=== PATIENT | female | born 1990 | race African-American/Black ===

== ENCOUNTER 2019-11-13 16:30 | Emergency (ER) | payer OTHER ==
[2019-11-13] MEDS ORDERED: ONDANSETRON *ODT* 4 MG TABLET SL ONE (16:43)
[2019-11-13 16:44] VITALS: BP 127/65; PULSE 84; TEMP 97.8; BMI 34.5
--- NOTE | 2019-11-13 16:44 | PDOC ---
Rapid Medical Evaluation Time Seen by Provider: 11/13/19 16:43 Medical Evaluation: Allergies Allergy/AdvReac Type Severity Reaction Status Date / Time Penicillins Allergy Verified 11/13/19 16:40 11/13/19 16:44 Pt c/o: n/v x 2 days now with gen fatigue, no other complaints Pt on brief exam: vss Pt ordered for: urine and zofran po Pt to proceed to the ED Discharge Disposition - Diagnosis Abdominal pain Nausea & vomiting Qualifiers: Vomiting type: unspecified Vomiting Intractability: non-intractable Qualified Code(s): R11.2 - Nausea with vomiting, unspecified - Discharge Dispostion Disposition: AGAINST MEDICAL ADVICE Condition at time of disposition: Guarded - Referrals - Patient Instructions Printed Discharge Instructions: DI for Abdominal Pain-Adult Additional Instructions: You are signing out AGAINST MEDICAL ADVICE. You have refused medication, bloodwork, and further imaging to find out the cause of your abdominal pain. You understand that you have not had a full evaluation in the ER and you are at risk for worsening of your symptoms, severe illness, permanent disability, or even . Please return to the ER should your symptoms persist. - Post Discharge Activity Work/School Note: Back to Work
[2019-11-13] MEDS ORDERED: ONDANSETRON *ODT* 4 MG TABLET ONE (18:15)
[2019-11-13] MEDS ORDERED: FAMOTIDINE 20 MG/50 ML IVPB 20 MG/50 ML MG IVPB ONE ×2 (18:25→19:24)
[2019-11-13] MEDS ORDERED: SODIUM CHLORIDE 1,000 ML IV STA (18:25)
--- NOTE | 2019-11-13 18:39 | PDOC ---
History of Present Illness - General Chief Complaint: Nausea/Vomiting Stated Complaint: VOMITTING/LOSS OF APPETITE Time Seen by Provider: 11/13/19 16:43 History Source: Patient Exam Limitations: Clinical Condition - History of Present Illness Initial Comments: 11/13/19 18:34 Patient with no significant past medical history present with complaint of 2- day history of abdominal pain, nausea, vomiting, body aches, weakness and headache. Patient reported abdominal pain is intermittent. Denies diarrhea, constipation. Denies urinary frequency, burning with urination or dysuria. Patient also reporting pain radiating to mid back. Patient did not take anything for symptoms. Is this a multiple visit Asthma Patient?: No Timing/Duration: other (2 days) Past History - Past Medical History Allergies/Adverse Reactions: Allergies Allergy/AdvReac Type Severity Reaction Status Date / Time Penicillins Allergy Verified 11/13/19 16:40 Home Medications: Ambulatory Orders NK [No Known Home Medication] 09/03/16 COPD: No Other medical history: PNA hospitalized 2017 - Psycho Social/Smoking Cessation Hx Smoking History: Never smoked Have you smoked in the past 12 months: Yes Number of Cigarettes Smoked Daily: 2 Hx Alcohol Use: No Drug/Substance Use Hx: No Substance Use Type: None Review of Systems - Review of Systems Able to Perform ROS?: Yes Is the patient limited Bengali proficient: No Constitutional: Yes: Malaise, Weakness. No: Chills, Fever HEENTM: Yes: Symptoms Reported, See HPI, Nose Congestion. No: Eye Pain, Blurred Vision, Tearing, Recent change in vision, Double Vision, Cataracts, Ear Pain, Ocular Prothesis, Ear Discharge, Nose Pain, Tinnitus, Nose Bleeding, Hearing Loss, Throat Pain, Throat Swelling, Mouth Pain, Dental Problems, Difficulty Swallowing, Mouth Swelling, Other Respiratory: No: Symptoms reported, See HPI, Cough, Orthopnea, Shortness of Breath, SOB with Exertion, SOB at Rest, Stridor, Wheezing, Productive cough, Hemoptysis, Other Cardiac (ROS): No: Symptoms Reported, See HPI, Chest Pain, Edema, Irregular Heart Rate, Lightheadedness, Palpitations, Syncope, Chest Tightness, Other ABD/GI: Yes: Symptoms Reported, See HPI, Nausea, Poor Appetite, Vomiting, Abdominal cramping. No: Constipated, Diarrhea, Difficulty Swallowing : No: Symptoms Reported, Burning, Dysuria, Frequency, Urgency Musculoskeletal: Yes: Symptoms Reported, See HPI, Back Pain Integumentary: No: Symptoms Reported All Other Systems: Reviewed and Negative *Physical Exam - Vital Signs Last Vital Signs Temp Pulse Resp BP Pulse Ox 97.8 F 84 18 127/65 99 11/13/19 16:41 11/13/19 16:41 11/13/19 16:41 11/13/19 16:41 11/13/19 16:41 - Physical Exam 11/13/19 18:38 GENERAL: Well developed, well nourished. Awake and alert in mild acute distress. HEENT: Normocephalic, atraumatic. PERRLA, EOMI. No conjunctival pallor. Sclera are non-icteric. Moist mucous membranes. Oropharynx is clear. NECK: Supple. Full ROM. CARDIOVASCULAR: Regular rate and rhythm. No murmurs, rubs, or gallops. Distal pulses are 2+ and symmetric. PULMONARY: No evidence of respiratory distress. Lungs clear to auscultation bilaterally. No wheezing, rales or rhonchi. ABDOMINAL: Soft. Moderate tenderness right upper quadrant. Non-distended. No rebound or guarding. No organomegaly. Normoactive bowel sounds. MUSCULOSKELETAL Normal range of motion at all joints. SKIN: Warm and dry. Normal capillary refill. No rashes. No jaundice. NEUROLOGICAL: Alert, awake, appropriate. Gait is normal without ataxia. PSYCHIATRIC: Cooperative. Good eye contact. Appropriate mood General Appearance: Yes: Nourished, Appropriately Dressed, Mild Distress ED Treatment Course - RADIOLOGY Radiology Studies Ordered: Category Date Time Status ABDOMEN US -LIMITED [US] Stat Ultrasound 11/13/19 18:22 Ordered - Medications Given in the ED: ED Medications Discontinued Medications Generic Name Dose Route Start Last Admin Trade Name Freq PRN Reason Stop Dose Admin Ondansetron HCl 4 mg 11/13/19 16:43 11/13/19 18:15 Zofran Odt - SL 11/13/19 16:44 4 mg ONCE ONE Administration Medical Decision Making - Medical Decision Making 11/13/19 18:35 Patient with no significant past medical history present with complaint of 2- day history of abdominal pain, nausea, vomiting, body aches, weakness and headache. Patient reported abdominal pain is intermittent. Denies diarrhea, constipation. Denies urinary frequency, burning with urination or dysuria. Patient also reporting pain radiating to mid back. Patient did not take anything for symptoms. Exam significant for moderate tenderness right upper quadrant without guarding or rebound. Lungs clear to auscultation bilateral. Mild subjective tenderness over bilateral mid back. No CVA tenderness. No pharyngeal erythema. Sepsis likely cholecystitis versus gastroenteritis from viral syndrome. UA, urine culture and urine test ordered. Zofran 4 mg sublingual ordered for nausea or vomiting. CBC, CMP and lipase lab ordered. Abdominal ultrasound ordered to rule out cholecystitis. Patient transferred to main ED for follow- up care as patient will need more work-up. Patient signed out to NANDO Ramos for follow-up care Discharge - Discharge Information Problems reviewed: Yes Clinical Impression/Diagnosis: Nausea & vomiting Qualifiers: Vomiting type: unspecified Vomiting Intractability: non-intractable Qualified Code(s): R11.2 - Nausea with vomiting, unspecified Abdominal pain Qualifiers: Abdominal location: right upper quadrant Qualified Code(s): R10.11 - Right upper quadrant pain Condition: Stable - Follow up/Referral - Patient Discharge Instructions - Post Discharge Activity
--- NOTE | 2019-11-13 19:32 | PDOC ---
*Physical Exam - Vital Signs Last Vital Signs Temp Pulse Resp BP Pulse Ox 97.8 F 84 18 127/65 99 11/13/19 16:41 11/13/19 16:41 11/13/19 16:41 11/13/19 16:41 11/13/19 16:41 - Physical Exam 11/13/19 19:31 Sign-out received from fast track provider Oracio. Pt interviewed and examined. Ancillary studies reviewed. Awaiting labs, US. 11/13/19 20:12 Patient refused IV, bloodwork. Advised patient workup is required for further evaluation of the cause of her abdominal pain, patient adamantly refused IV/ labs from multiple RNs. Awaiting US. 11/13/19 21:00 Patient requesting to leave prior to US results. Advised patient to stay for results. US negative. Patient states dhe wants to sign out AMA and that "every winter I get sick like this." Repeatedly discussed with patient that furhter workup is required to investigate cause of sudden onset abdominal pain, patient insists on leaving AMA and has capacity to make this decision. ED Treatment Course - Medications Given in the ED: ED Medications Discontinued Medications Generic Name Dose Route Start Last Admin Trade Name Freq PRN Reason Stop Dose Admin Ondansetron HCl 4 mg 11/13/19 16:43 11/13/19 18:15 Zofran Odt - SL 11/13/19 16:44 4 mg ONCE ONE Administration Discharge - Discharge Information Problems reviewed: Yes Clinical Impression/Diagnosis: Nausea & vomiting Qualifiers: Vomiting type: unspecified Vomiting Intractability: non-intractable Qualified Code(s): R11.2 - Nausea with vomiting, unspecified Abdominal pain Qualifiers: Abdominal location: right upper quadrant Qualified Code(s): R10.11 - Right upper quadrant pain Condition: Guarded Disposition: AGAINST MEDICAL ADVICE - Admission No - Follow up/Referral - Patient Discharge Instructions Patient Printed Discharge Instructions: DI for Abdominal Pain-Adult Additional Instructions: You are signing out AGAINST MEDICAL ADVICE. You have refused medication, bloodwork, and further imaging to find out the cause of your abdominal pain. You understand that you have not had a full evaluation in the ER and you are at risk for worsening of your symptoms, severe illness, permanent disability, or even . Please return to the ER should your symptoms persist. - Post Discharge Activity Work/Back to School Note: Back to Work
== END 2019-11-13 21:56 | disposition left against medical advice (07) ==
LOC: JER 16:30
DX: R10.31 Right lower quadrant pain (principal); R11.2 Nausea with vomiting, unspecified; Z88.0 Allergy status to penicillin
CPT/HCPCS: 76705-TC; 87804; 99282-25; Q0162

== ENCOUNTER 2020-06-04 23:01 | Emergency (ER) | payer SELFPAY ==
[~2020-06-04 23:01] MED LIST: LIDOCAINE PATCH REMOVAL MC SCH
[2020-06-04 23:17] VITALS: BP 102/52; TEMP 98; BMI 42.0
--- NOTE | 2020-06-04 23:53 | PDOC ---
History of Present Illness - General Chief Complaint: Back Pain Stated Complaint: BACK PAIN Time Seen by Provider: 06/04/20 23:51 - History of Present Illness Initial Comments: HPI: 30yo F with no reported PMH presenitng with back pain. Patient reports the pain started earlier today. Denies any recent trauma or new exertional activities. Has never had pain like this before. Did not take anything for her pain at home. Reports 10/10 pain in the region of her right flank that is described as "hot." Denies saddle anesthesia, pain shooting down her legs, or urinary/fecal incontinence. LMP was about three months ago as patient reports abnormal cycles. Has had some recent weight gain. Reports chills. No fever or night sweats. Denies urinary symptoms. ROS: Constitutional: no fever, +chills HEENT: no throat pain, no dysphagia Cardiovascular: no chest pain, no palpitations Respiratory: no cough, no shortness of breath Gastrointestinal: no abdominal pain, no nausea Genitourinary: no dysuria, no hematuria Musculoskeletal: no arthralgia +back pain Skin: no rash, no itching Neurologic: no headache, no weakness Psych: no agitation, no anxiety PE: General: Awake, alert, and fully oriented, in no acute distress, obese Head: No signs of trauma Eyes: EOMI, sclera anicteric ENT: Moist mucus membranes Neck: Normal ROM, supple Lungs: Lungs clear, Normal breath sounds Cardio: Regular rhythm, S1 and S2 present Abdomen: Soft, nontender. No guarding, no rebound, no masses Extremities: Normal range of motion, Distal pulses present Skin: Warm, Dry, normal turgor Neurologic: Cranial nerves II through XII grossly intact. Normal speech Back: Tender to palpation in lumbar area, right of midline, no step-offs/deformities/fluctuance; no overlying wound or lesion ED Course/MDM: DDX including but not limited to musculoskeletal back pain, UTI/pyelonephritis, nephrolithiasis No red flag back pain symptoms Urine test and UA Toradol 06/04/20 23:53 Patient refusing motrin. "I just don't want to take it" Tylenol ordered 06/05/20 00:50 Laboratory Tests 06/05/20 00:43 Urine Color Yellow Urine Appearance Cloudy Urine pH >= 9.0 H D Ur Specific [place] 1.019 Urine Protein Trace Urine Glucose (UA) Negative Urine Ketones Negative Urine Blood Negative Urine Nitrite Negative Urine Bilirubin Negative Urine Urobilinogen 1.0 Ur Leukocyte Esterase 2+ H Urine WBC (Auto) 522 Urine RBC (Auto) 13 Urine Casts (Auto) 3 U Epithel Cells (Auto) 19 Urine Bacteria (Auto) >10,000 Urine HCG, Qual Negative UA with infection Presentation consistent with pyelonephritis Patient with penicillin allergy; will cover with bactrim CBC WBC 13.6 K/mm3 (4.0-10.0) H 06/05/20 02:15 RBC 4.83 M/mm3 (3.60-5.2) 06/05/20 02:15 Hgb 13.7 GM/dL (10.7-15.3) 06/05/20 02:15 Hct 41.4 % (32.4-45.2) D 06/05/20 02:15 MCV 85.7 fl (80-96) 06/05/20 02:15 MCH 28.3 pg (25.7-33.7) 06/05/20 02:15 MCHC 33.0 g/dl (32.0-36.0) 06/05/20 02:15 RDW 13.0 % (11.6-15.6) 06/05/20 02:15 Plt Count 337 K/MM3 (134-434) 06/05/20 02:15 MPV 6.9 fl (7.5-11.1) L 06/05/20 02:15 Absolute Neuts (auto) 9.7 K/mm3 (1.5-8.0) H 06/05/20 02:15 Neutrophils % 71.3 % (42.8-82.8) 06/05/20 02:15 Lymphocytes % 21.3 % (8-40) D 06/05/20 02:15 Monocytes % 4.7 % (3.8-10.2) 06/05/20 02:15 Eosinophils % 2.1 % (0-4.5) 06/05/20 02:15 Basophils % 0.6 % (0-2.0) 06/05/20 02:15 Nucleated RBC % 0 % (0-0) 06/05/20 02:15 Leukocytosis CMP Sodium 139 mmol/L (136-145) 06/05/20 02:15 Potassium 4.1 mmol/L (3.5-5.1) 06/05/20 02:15 Chloride 104 mmol/L (98-107) 06/05/20 02:15 Carbon Dioxide 27 mmol/L (21-32) 06/05/20 02:15 Anion Gap 8 MMOL/L (8-16) 06/05/20 02:15 BUN 18.3 mg/dL (7-18) H 06/05/20 02:15 Creatinine 1.0 mg/dL (0.55-1.3) 06/05/20 02:15 Est GFR (CKD-EPI)AfAm 88.17 06/05/20 02:15 Est GFR (CKD-EPI)NonAf 76.07 06/05/20 02:15 Random Glucose 106 mg/dL (74-106) 06/05/20 02:15 Calcium 8.9 mg/dL (8.5-10.1) 06/05/20 02:15 Total Bilirubin 0.2 mg/dL (0.2-1) 06/05/20 02:15 AST 20 U/L (15-37) 06/05/20 02:15 ALT 29 U/L (13-61) 06/05/20 02:15 Alkaline Phosphatase 148 U/L (45-117) H 06/05/20 02:15 Total Protein 7.7 g/dl (6.4-8.2) 06/05/20 02:15 Albumin 3.5 g/dl (3.4-5.0) 06/05/20 02:15 Electrolytes unremarkable Normal Cr No transaminitis Bactrim prescription sent to pharmacy Primary care referral Return precautions Stable for discharge 06/05/20 03:42 Past History - Medical History Allergies/Adverse Reactions: Allergies Allergy/AdvReac Type Severity Reaction Status Date / Time Penicillins Allergy Verified 11/13/19 16:40 Home Medications: Ambulatory Orders Sulfamethoxazole/Trimethoprim [Bactrim Ds Tablet] 1 each PO BID #28 tablet 06/05/20 COPD: No - Psycho-Social/Smoking History Smoking History: Never smoked Have you smoked in the past 12 months: Yes Number of Cigarettes Smoked Daily: 2 - Substance Abuse Hx (Audit-C & DAST Scrn) How often the patient has a drink containing alcohol: Never Score: In Men: 4 or > Positive; In Women: 3 or > Positive: 0 Screen Result (Pos requires Nsg. Audit-10AR): Negative *Physical Exam - Vital Signs Last Vital Signs Temp Pulse Resp BP Pulse Ox 98 F 85 20 102/52 L 97 06/04/20 23:14 06/04/20 23:14 06/04/20 23:14 06/04/20 23:14 06/04/20 23:14 ED Treatment Course - LABORATORY CBC & Chemistry Diagram: 06/05/20 02:15 06/05/20 02:15 Discharge - Discharge Information Problems reviewed: Yes Clinical Impression/Diagnosis: Pyelonephritis Condition: Stable Disposition: HOME - Additional Discharge Information Prescriptions: Sulfamethoxazole/Trimethoprim [Bactrim Ds Tablet] 1 each PO BID #28 tablet - Follow up/Referral Referrals: [facility] [place] [facility] [place] [Provider Group] - Patient Discharge Instructions Patient Printed Discharge Instructions: DI for Kidney Infection Additional Instructions: You came to the emergency department for back pain. Urinalysis shows you have a urinary tract infection. Antibiotics prescription has been sent to your pharmacy. You can take [id number] tylenol or motrin for pain. Follow the instructions on the medication bottle. Make sure you do not take too much medicine. The maximum daily dose for tylenol is 4000mg/day. The maximum daily dose for motrin is 3200mg/day. Follow-up with a primary care provider within 72 hours to discuss this ED visit and to further evaluate your symptoms. Your workup is not complete until you do so. You have been referred to the [facility] in case you do not have a primary care doctor. Call and make an appointment at the number provided. Immediate medical attention is required if you experience: you develop high fevers, chills, persistent vomiting, stop urinating, or any new or concerning symptoms. If you think you have an emergency, call for medical help right away. - Post Discharge Activity
[2020-06-04] MEDS ORDERED: LIDOCAINE 5% TOPICAL PATCH TP ONE (23:54)
[2020-06-05] MEDS ORDERED: KETOROLAC TROMETHAMINE 60 MG/2 ML VIAL IM ONE (00:01)
[2020-06-05] MEDS ORDERED: KETOROLAC TROMETHAMINE 60 MG/2 ML VIAL ONE (00:01)
[2020-06-05] MEDS ORDERED: LIDOCAINE 5% TOPICAL PATCH ONE (00:01)
[2020-06-05] MEDS ORDERED: IBUPROFEN 600 MG TABLET (FP) PO ONE ×2 (00:24→00:41)
[2020-06-05] MEDS ORDERED: ACETAMINOPHEN 500 MG TABLET (FP) PO ONE (00:47)
--- NOTE | 2020-06-05 01:14 | PDOC ---
Documentation entered by Zeinab Tavares SCRIBE, acting as scribe for Kami Humphreys MD. Kami Humphreys MD: This documentation has been prepared by the Chaitanya tejeda Xhesika, SCRIBE, under my direction and personally reviewed by me in its entirety. I confirm that the documentation accurately reflects all work, treatment, procedures, and medical decision making performed by me. Attending Attestation - Resident Resident Name: Clara Gil - ED Attending Attestation I have performed the following: I have examined & evaluated the patient, The case was reviewed & discussed with the resident, I agree w/resident's findings & plan - HPI HPI: 06/05/20 00:01 The patient is a 30y/o F with no PMH who presents to the ED with 2 days of back pain associated with chills. Pt state her pain started slowly yesterday while at work and has progressively gotten worse. Pt states her pain is worse arcadio urinating, sitting down or with any movements. Pt denies lifting any heavy weights. Pt denies taking any pain medications. The patient denies any CP, SOB, fever, cough, nausea, vomiting or diarrhea. Pt denies any URI symptoms. Allergies: Penicillins - Physicial Exam PE: 06/05/20 00:18 GENERAL: Awake, alert, and fully oriented, in no acute distress. +morbidly obese HEAD: No signs of trauma EYES: PERRLA, EOMI, sclera anicteric, conjunctiva clear ENT: Auricles normal inspection, hearing grossly normal, nares patent, oropharynx clear without exudates. Moist mucosa NECK: Normal ROM, supple, no lymphadenopathy, JVD, or masses LUNGS: Breath sounds equal, clear to auscultation bilaterally. No wheezes, and no crackles HEART: Regular rate and rhythm, normal S1 and S2, no murmurs, rubs or gallops ABDOMEN: Soft, nontender, normoactive bowel sounds. No guarding, no rebound. No masses BACK: + back pain TTP. No CVA pain with percussion. EXTREMITIES: Normal range of motion, no edema. No clubbing or cyanosis. No cords, erythema, or tenderness NEUROLOGICAL: Cranial nerves II through XII grossly intact. SKIN: Warm, Dry, normal turgor, no rashes lesions noted. - Medical Decision Making 06/05/20 00:41 Pt has morbid obesity. States that she didn't lift heavy items or strain self. However has musculoskeletal pain in the right low back. Pain is paraspinal. She has no dysuria or frequency or urgency. She states that when she sits to pee on the toilet she has back pain. Pt has taken no meds at home and she has attempted stretching with no success. She states that recently she has put on a lot of weight. Pt is refusing motrin and refusing toradol. Pt will be getting tylenol. 06/05/20 02:36 Pt has>>10K bacteria in her urine and leukocytes. She is allergic to PCN We will treat with bactrim Labs sent If WBC is really high she will be sent for spiral CT scan 06/05/20 03:05 Pt has a WBC count of 13.6 06/05/20 03:12 Pt's BUN and Cr are normal SHe will be treated for a pyelonephritis, as she is tolerating oral intake. She will be given bactrim DS as she is PCN allergic Discharge - Discharge Information Problems reviewed: Yes Clinical Impression/Diagnosis: Pyelonephritis Condition: Stable Disposition: HOME - Additional Discharge Information Prescriptions: Sulfamethoxazole/Trimethoprim [Bactrim Ds Tablet] 1 each PO BID #28 tablet - Follow up/Referral Referrals: [facility] [place] [facility] [place] [Provider Group] - Patient Discharge Instructions Patient Printed Discharge Instructions: DI for Kidney Infection Additional Instructions: You came to the emergency department for back pain. Urinalysis shows you have a urinary tract infection. Antibiotics prescription has been sent to your pharmacy. You can take [id number] tylenol or motrin for pain. Follow the instructions on the medication bottle. Make sure you do not take too much medicine. The maximum daily dose for tylenol is 4000mg/day. The maximum daily dose for motrin is 3200mg/day. Follow-up with a primary care provider within 72 hours to discuss this ED visit and to further evaluate your symptoms. Your workup is not complete until you do so. You have been referred to the [facility] in case you do not have a primary care doctor. Call and make an appointment at the number provided. Immediate medical attention is required if you experience: you develop high fevers, chills, persistent vomiting, stop urinating, or any new or concerning symptoms. If you think you have an emergency, call for medical help right away. - Post Discharge Activity
[2020-06-05] MEDS ORDERED: ACETAMINOPHEN 500 MG TABLET (FP) ONE (01:33)
[2020-06-05 01:46] LABS: EPI CELLS 19 /uL (0-25.1); HCG,QUALITATIVE URINE Negative; HYALINE CASTS 3 /uL (0-3.1); PH,URINE >= 9.0 (5.0-8.0); URINE APPEARANCE CLOUDY; URINE BILIRUBIN NEGATIVE (NEGATIVE); URINE COLOR YELLOW; URINE GLUCOSE (UA) NEGATIVE (NEGATIVE); URINE KETONE NEGATIVE (NEGATIVE); URINE LEUK ESTERASE 2+ (NEGATIVE); URINE NITRITE NEGATIVE (NEGATIVE); URINE PROTEIN TRACE (NEGATIVE); URINE RBC 13 /uL (0-23.9); URINE WBC 522 /uL (0-25.8)
[2020-06-05] MEDS ORDERED: SULFAMETHOXAZOLE/TRIMETHOPRIM 800MG/160MG D.S. TABLET PO ONE (02:10)
[2020-06-05 02:41] LABS: BASO % 0.6 % (0-2.0); EOS % 2.1 % (0-4.5); HEMATOCRIT 41.4 % (32.4-45.2); HEMOGLOBIN 13.7 GM/dL (10.7-15.3); LYMPH % 21.3 % (8-40); MCH 28.3 pg (25.7-33.7); MEAN CELL VOLUME 85.7 fl (80-96); MEAN PLT VOLUME 6.9 fl (7.5-11.1); MONO % 4.7 % (3.8-10.2); NEUT % 71.3 % (42.8-82.8); PLATELET COUNT 337 K/MM3 (134-434); RBC 4.83 M/mm3 (3.60-5.2); WHITE BLOOD COUNT 13.6 K/mm3 (4.0-10.0)
[2020-06-05 03:06] LABS: ALBUMIN 3.5 g/dl (3.4-5.0); BILIRUBIN,TOTAL 0.2 mg/dL (0.2-1); BLOOD UREA NITROGEN 18.3 mg/dL (7-18); CALCIUM 8.9 mg/dL (8.5-10.1); POTASSIUM 4.1 mmol/L (3.5-5.1); TOT PROT 7.7 g/dl (6.4-8.2)
[2020-06-05] MEDS ORDERED: SULFAMETHOXAZOLE/TRIMETHOPRIM 800MG/160MG D.S. TABLET ONE (03:14)
[2020-06-05 04:17] VITALS: PULSE 84
== END 2020-06-05 04:20 | disposition home or self-care (01) ==
LOC: JER 23:01
DX: N12 Tubulo-interstitial nephritis, not specified as acute or chronic (principal)
CPT/HCPCS: 36415; 80053; 81003; 84703; 85025; 99284-25

== ENCOUNTER 2020-09-28 16:17 | Emergency (ER) | payer SELFPAY ==
--- NOTE | 2020-09-28 16:31 | PDOC ---
Rapid Medical Evaluation Time Seen by Provider: 09/28/20 16:28 Medical Evaluation: Allergies Allergy/AdvReac Type Severity Reaction Status Date / Time Penicillins Allergy Verified 11/13/19 16:40 09/28/20 16:29 CC: sudden onset of rt knee pain since yesterday, worse with bending, swelling to area, denies injury Exam: Limited flexion due to discomfort, mild edema to ant aspect of rt patella, no deformity or crepitus Plan: xray Discharge Disposition - Diagnosis Knee pain - Referrals - Patient Instructions - Post Discharge Activity
[2020-09-28 16:33] VITALS: BP 130/90; PULSE 79; TEMP 98.2; BMI 45.7
--- OUTSIDE RECORDS SUMMARY | 2020-09-28 16:44 | XMS ---
:1990 [facility] Care Team Providers Name Role Phone [facility], [facility] Unavailable Unavailable Re-disclosure Warning The records that you are about to access may contain information from federally- assisted alcohol or drug abuse programs. If such information is present, then the following federally mandated warning applies: This information has been disclosed to you from records protected by federal confidentiality rules (42 CFR part 2). The federal rules prohibit you from making any further disclosure of this information unless further disclosure is expressly permitted by the written consent of the person to whom it pertains or as otherwise permitted by 42 CFR part 2. A general authorization for the release of medical or other information is NOT sufficient for this purpose. The Federal rules restrict any use of the information to criminally investigate or prosecute any alcohol or drug abuse patient.The records that you are about to access may contain highly sensitive health information, the redisclosure of which is protected by Article 27-F of the [facility] Public Health law. If you continue you may haveaccess to information: Regarding HIV / AIDS; Provided by facilities licensed or operated by the [facility] Office of Mental Health; or Provided by the [facility] Office for People With Developmental Disabilities. If such information is present, then the following [facility] mandated warning applies: This information has been disclosed to you from confidential records which are protected by state law. State law prohibits you from making any further disclosure of this information without the specific written consent of the person to whom it pertains, or as otherwise permitted by law. Any unauthorized further disclosure in violation of state law may result in a fine or group home sentence or both. A general authorization for the release of medical or other information is NOT sufficient authorization for further disclosure. Encounters Encounter Providers Location Date Indications Data Source(s ) Outpatient Attender: [id number] 01/12/2020 [facility] 01:07:56 PM Care Horacio echavarria) EST Patient admitted. Insurance Providers Payer name Policy type Policy ID Covered Covered libertarian's Policy P robbi / Coverage libertarian ID relationship to [facility] ormation type garcia SELF PAY SP INSURANCE MEDICARE [id number] SP [id number] A MEDICAID [id number] SP [id number] Results ID Date Data Source [id number] 04/23/2020 12:00:00 AM EDT [place] Name Value Range Interpretation Code Description Data Leonie rce(s) Supporting Document(s ) 2019-nCoV [facility] RNA XXX ALEXANDRA+probe- Imp This lab was ordered by [facility]Meri CARROLL and reported by [employer] Procedure
--- NOTE | 2020-09-28 17:04 | PDOC ---
History of Present Illness - General Chief Complaint: Pain Stated Complaint: R KNEE PAIN Time Seen by Provider: 09/28/20 16:28 - History of Present Illness Initial Comments: 09/28/20 17:01 30-year-old female denies comorbidities presents for evaluation of right knee pain x1 day without any precipitating traumatic event. Past History - Medical History Allergies/Adverse Reactions: Allergies Allergy/AdvReac Type Severity Reaction Status Date / Time Penicillins Allergy Verified 09/28/20 16:32 Home Medications: Ambulatory Orders Sulfamethoxazole/Trimethoprim [Bactrim Ds Tablet] 1 each PO BID #28 tablet 06/05/20 Ibuprofen [Motrin -] 600 mg PO TID #30 tablet 09/28/20 COPD: No - Reproductive History Is Patient Now?: No - Psycho-Social/Smoking History Smoking History: Never smoked Have you smoked in the past 12 months: No Number of Cigarettes Smoked Daily: 2 Information on smoking cessation initiated: No - Substance Abuse Hx (Audit-C & DAST Scrn) How often the patient has a drink containing alcohol: Never Score: In Men: 4 or > Positive; In Women: 3 or > Positive: 0 Screen Result (Pos requires Nsg. Audit-10AR): Negative In the last yr the pt used illegal drug/Rx for NonMed reason: No Score: Yes response is considered Positive: 0 Screen Result (Positive result requires Nsg. DAST-10): Negative Review of Systems - Review of Systems Constitutional: No: Fever Musculoskeletal: Yes: Joint Pain *Physical Exam - Vital Signs Last Vital Signs Temp Pulse Resp BP Pulse Ox 98.2 F 79 17 130/90 100 09/28/20 16:30 09/28/20 16:30 09/28/20 16:30 09/28/20 16:30 09/28/20 16:30 - Physical Exam 09/28/20 17:01 Patient walks with antalgic gait. Right knee skin color temperature normal no intra-articular effusion diffuse tenderness out of proportion to the examination resists range of motion maneuvers or stability testing thigh and calf soft and nontender neurovascular intact no gross sensorimotor deficits. Medical Decision Making - Medical Decision Making 09/28/20 17:01 X-rays of the right knee show no evidence of fracture trauma or destructive process. Most likely patellofemoral syndrome in this overweight female weight- bear as tolerated with crutches Motrin for pain follow-up with Ortho I have reviewed the pathophysiology with the patient. They are in agreement with the treatment plan all questions were answered to their satisfaction. Understanding for follow-up without fail was also conveyed to the patient. Again they are in agreement. Discharge - Discharge Information Problems reviewed: Yes Clinical Impression/Diagnosis: Knee pain Condition: Stable Disposition: HOME - Admission No - Follow up/Referral Referrals: Moises Nassar DO [Staff Physician] - - Patient Discharge Instructions Additional Instructions: Please take the prescription strength Motrin as directed with food. You may also supplement Tylenol as directed for additional pain medication. Return to the emergency room for worsening symptoms and without fail follow-up with orthopedic surgery in 2 to 3 days for further evaluation and treatment options. - Post Discharge Activity
== END 2020-09-28 17:09 | disposition home or self-care (01) ==
LOC: JERFT 16:17
DX: M25.561 Pain in right knee (principal)
CPT/HCPCS: 73562-TC-RT-FY; 99284-25

== ENCOUNTER 2021-07-11 11:49 | Emergency (ER) | payer OTHER ==
[2021-07-11 12:05] VITALS: BP 123/80; PULSE 83; TEMP 97.9; BMI 40.2
[2021-07-11] MEDS ORDERED: KETOROLAC TROMETHAMINE 30 MG/1 ML VIAL IM ONE (12:26)
[2021-07-11] MEDS ORDERED: METHOCARBAMOL 500 MG TABLET PO ONE (12:26)
[2021-07-11] MEDS ORDERED: KETOROLAC TROMETHAMINE 30 MG/1 ML VIAL ONE (12:32)
[2021-07-11] MEDS ORDERED: METHOCARBAMOL 500 MG TABLET ONE (12:35)
== END 2021-07-11 13:25 | disposition home or self-care (01) ==
LOC: JERFT 11:49
DX: S13.4XXA Sprain of ligaments of cervical spine, initial encounter (principal); M62.830 Muscle spasm of back; V49.40XA Driver injured in collision with unspecified motor vehicles in traffic accident, initial encounter
CPT/HCPCS: 99283-25

== ENCOUNTER 2021-09-22 14:50 | Emergency (ER) | payer SELFPAY ==
[2021-09-22 15:16] VITALS: BP 116/79; PULSE 100; TEMP 100.6; BMI 40.2
[2021-09-22] MEDS ORDERED: ACETAMINOPHEN 500 MG TABLET (FP) PO ONE (15:47)
[2021-09-22] MEDS ORDERED: ACETAMINOPHEN 500 MG TABLET (FP) ONE (17:45)
== END 2021-09-22 17:45 | disposition home or self-care (01) ==
LOC: JER 14:50
DX: M79.10 Myalgia, unspecified site (principal)
CPT/HCPCS: 71046-TC-FY; 87804; 99284-25; C9803; U0003; U0005

== ENCOUNTER 2021-11-08 02:28 | Emergency (ER) | payer SELFPAY ==
[2021-11-08 02:54] VITALS: BMI 42.0
[2021-11-08] MEDS ORDERED: ACETAMINOPHEN 500 MG TABLET (FP) PO ONE (03:33)
[2021-11-08] MEDS ORDERED: ACETAMINOPHEN 500 MG TABLET (FP) ONE (04:04)
[2021-11-08 04:43] LABS: BASO % 0.3 % (0-2.0); EOS % 0.6 % (0-4.5); HEMATOCRIT 38.9 % (32.4-45.2); HEMOGLOBIN 13.5 GM/dL (10.7-15.3); LYMPH % 7.4 % (8-40); MCH 28.8 pg (25.7-33.7); MCHC 34.8 g/dl (32.0-36.0); MEAN CELL VOLUME 82.8 fl (80-96); MEAN PLT VOLUME 6.8 fl (7.5-11.1); MONO % 4.4 % (3.8-10.2); NEUT % 87.3 % (42.8-82.8); PLATELET COUNT 390 10^3/uL (134-434)
[2021-11-08 05:05] LABS: ALBUMIN 3.2 g/dl (3.4-5.0); BLOOD UREA NITROGEN 6.7 mg/dL (7-18); CALCIUM 8.8 mg/dL (8.5-10.1)
[2021-11-08 05:08] LABS: CREATININE 0.9 mg/dL (0.55-1.3)
[2021-11-08 05:09] LABS: BILIRUBIN,TOTAL 0.4 mg/dL (0.2-1); TOT PROT 7.9 g/dl (6.4-8.2)
[2021-11-08] MEDS ORDERED: SODIUM CHLORIDE 0.9% 500 ML INFUS.BAG IV ONE (05:58)
[2021-11-08 06:04] VITALS: BP 122/67; PULSE 94; TEMP 98.6
[2021-11-08 06:50] LABS: URINE APPEARANCE CLEAR; URINE BILIRUBIN NEGATIVE (NEGATIVE); URINE COLOR YELLOW; URINE GLUCOSE (UA) NEGATIVE (NEGATIVE); URINE KETONE NEGATIVE (NEGATIVE); URINE LEUK ESTERASE TRACE (NEGATIVE); URINE NITRITE NEGATIVE (NEGATIVE); URINE PROTEIN NEGATIVE (NEGATIVE); URINE UROBILINOGEN 0.2 mg/dL (0.2-1.0)
[2021-11-08 07:17] LABS: EPI CELLS 5 /uL (0-25.1); URINE RBC 1 /uL (0-23.9); URINE WBC 1 /uL (0-25.8)
== END 2021-11-08 09:14 | disposition left against medical advice (07) ==
LOC: JER 02:28
DX: M54.50 Low back pain, unspecified (principal); J02.9 Acute pharyngitis, unspecified; R50.9 Fever, unspecified
CPT/HCPCS: 36415; 71045-TC-FY; 80053; 81003; 84703; 85025; 87040; 87086; 87804; 93005; 93010; 99285-25; C9803; U0003; U0005

== ENCOUNTER 2022-03-10 01:12 | Observation (INO) | payer SELFPAY ==
[2022-03-10] MEDS ORDERED: SODIUM CHLORIDE 0.9% 500 ML INFUS.BAG IV ONE (02:09)
[2022-03-10] MEDS ORDERED: ONDANSETRON 4 MG/2 ML VIAL IVPUSH ONE (02:10)
[2022-03-10] MEDS ORDERED: ACETAMINOPHEN 1000 MG/100 ML BAG IVPB ONE (02:10)
[2022-03-10] MEDS ORDERED: ONDANSETRON 4 MG/2 ML VIAL ONE (02:21)
[2022-03-10] MEDS ORDERED: ACETAMINOPHEN INJECTION 100 ML IVPB ONE ×2 (02:21→08:48)
[2022-03-10 02:39] LABS: BASO % 0.3 % (0-2.0); EOS % 0.6 % (0-4.5); HEMATOCRIT 40.2 % (32.4-45.2); HEMOGLOBIN 13.7 GM/dL (10.7-15.3); MCH 28.1 pg (25.7-33.7); MCHC 34.2 g/dl (32.0-36.0); MEAN CELL VOLUME 82.2 fl (80-96); MEAN PLT VOLUME 6.2 fl (7.5-11.1); MONO % 5.5 % (3.8-10.2); NEUT % 84.6 % (42.8-82.8); PLATELET COUNT 417 10^3/uL (134-434); RBC 4.89 M/mm3 (3.60-5.2); RDW 13.5 % (11.6-15.6); WHITE BLOOD COUNT 17.3 K/mm3 (4.0-10.0)
[2022-03-10 02:49] LABS: INR 1.31 (0.83-1.09); PROTHROMBIN TIME (PATIENT) 15.1 SEC (9.7-13.0)
[2022-03-10 02:52] LABS: ACTIVATED PTT 30.2 SECONDS (25.2-36.5)
[2022-03-10 03:06] LABS: CALCIUM 9.2 mg/dL (8.5-10.1)
[2022-03-10 03:07] LABS: ALBUMIN 3.5 g/dl (3.4-5.0); BLOOD UREA NITROGEN 11.2 mg/dL (7-18)
[2022-03-10] MEDS ORDERED: morphine CARPU-JECT 2 MG/1 ML DISP.SYRIN IVPUSH ONE (03:07)
[2022-03-10 03:10] LABS: CREATININE 0.8 mg/dL (0.55-1.3)
[2022-03-10 03:11] LABS: BILIRUBIN,TOTAL 0.3 mg/dL (0.2-1); TOT PROT 7.5 g/dl (6.4-8.2)
[2022-03-10] MEDS ORDERED: ONDANSETRON 4 MG/2 ML VIAL IVPUSH PRN (04:36)
[2022-03-10] MEDS: LACTATED RINGERS SOLUTION 1,000 ML IV SCH ×2 (06:37→23:27)
[2022-03-10] MEDS: ACETAMINOPHEN 1000 MG/100 ML BAG IVPB PRN ×2 (09:00→19:51)
[2022-03-10] MEDS ORDERED: ENOXAPARIN NA (PORCINE) 40 MG/0.4 ML DISP.SYRIN SQ ONE (09:47)
[2022-03-10 09:52] LABS: BASO % 0.2 % (0-2.0); EOS % 0.8 % (0-4.5); HEMATOCRIT 37.9 % (32.4-45.2); HEMOGLOBIN 12.9 GM/dL (10.7-15.3); LYMPH % 14.8 % (8-40); MCH 28.1 pg (25.7-33.7); MCHC 34.1 g/dl (32.0-36.0); MEAN CELL VOLUME 82.5 fl (80-96); MEAN PLT VOLUME 6.4 fl (7.5-11.1); NEUT % 79.2 % (42.8-82.8); PLATELET COUNT 391 10^3/uL (134-434); RDW 13.2 % (11.6-15.6); WHITE BLOOD COUNT 14.8 K/mm3 (4.0-10.0)
[2022-03-10] MEDS ORDERED: ENOXAPARIN NA (PORCINE) 30 MG/0.3 ML DISP.SYRIN SQ SCH (10:00)
[2022-03-10 10:08] LABS: BLOOD UREA NITROGEN 8.6 mg/dL (7-18); CALCIUM 8.1 mg/dL (8.5-10.1); MAGNESIUM 1.7 mg/dL (1.8-2.4)
[2022-03-10 10:11] LABS: PHOSPHOROUS 3.6 mg/dL (2.5-4.9)
[2022-03-10 10:12] LABS: CREATININE 0.8 mg/dL (0.55-1.3)
[2022-03-10 10:13] LABS: BILIRUBIN,TOTAL 0.3 mg/dL (0.2-1); TOT PROT 6.4 g/dl (6.4-8.2)
[2022-03-10] MEDS ORDERED: MAGNESIUM OXIDE 400 MG TABLET (FP) PO ONE (11:36)
[2022-03-10] MEDS ORDERED: cefTRIAXone SODIUM 1 GM VIAL ONE (17:27)
[2022-03-10] MEDS ORDERED: DEXTROSE 5%-WATER - 50 ML IVPB ONE (17:27)
[2022-03-10] MEDS: CEFTRIAXONE 1 GM in DEXTROSE 5%-WATER - 50 ML IVPB SCH (17:33)
[2022-03-11 09:12] LABS: EPI CELLS >36 /uL (0-25.1); HYALINE CASTS 1 /uL (0-3.1); URINE APPEARANCE CLOUDY; URINE BACTERIA 211 /uL (0-1359); URINE BILIRUBIN NEGATIVE (NEGATIVE); URINE COLOR YELLOW; URINE GLUCOSE (UA) NEGATIVE (NEGATIVE); URINE KETONE NEGATIVE (NEGATIVE); URINE LEUK ESTERASE 2+ (NEGATIVE); URINE NITRITE NEGATIVE (NEGATIVE); URINE PROTEIN NEGATIVE (NEGATIVE); URINE RBC 16 /uL (0-23.9); URINE UROBILINOGEN 0.2 mg/dL (0.2-1.0); URINE WBC 467 /uL (0-25.8)
[2022-03-11] MEDS ORDERED: DEXTROSE 5%-WATER - 50 ML IVPB ONE (09:28)
[2022-03-11] MEDS ORDERED: cefTRIAXone SODIUM 1 GM VIAL ONE (09:28)
[2022-03-11] MEDS: LACTATED RINGERS SOLUTION 1,000 ML IV SCH ×2 (09:30→12:47)
[2022-03-11] MEDS: CEFTRIAXONE 1 GM in DEXTROSE 5%-WATER - 50 ML IVPB SCH (09:33)
[2022-03-11 10:57] LABS: BASO % 0.1 % (0-2.0); EOS % 2.4 % (0-4.5); HEMATOCRIT 36.3 % (32.4-45.2); HEMOGLOBIN 12.5 GM/dL (10.7-15.3); LYMPH % 22.8 % (8-40); MCH 28.3 pg (25.7-33.7); MCHC 34.5 g/dl (32.0-36.0); MEAN PLT VOLUME 6.5 fl (7.5-11.1); MONO % 6.4 % (3.8-10.2); NEUT % 68.3 % (42.8-82.8); PLATELET COUNT 377 10^3/uL (134-434); RBC 4.43 M/mm3 (3.60-5.2); RDW 13.1 % (11.6-15.6); WHITE BLOOD COUNT 9.1 K/mm3 (4.0-10.0)
[2022-03-11 10:59] LABS: CALCIUM 8.5 mg/dL (8.5-10.1)
[2022-03-11 11:00] LABS: ALBUMIN 2.5 g/dl (3.4-5.0); BLOOD UREA NITROGEN 4.5 mg/dL (7-18); MAGNESIUM 1.9 mg/dL (1.8-2.4)
[2022-03-11 11:02] LABS: CREATININE 0.8 mg/dL (0.55-1.3)
[2022-03-11 11:04] LABS: BILIRUBIN,TOTAL 0.2 mg/dL (0.2-1)
[2022-03-11] MEDS ORDERED: ENOXAPARIN NA (PORCINE) 40 MG/0.4 ML DISP.SYRIN SQ ONE (17:53)
[2022-03-12] MEDS ORDERED: ACETAMINOPHEN 325 MG TABLET (FP) PO PRN (08:10)
[2022-03-12 08:49] LABS: BASO % 0.2 % (0-2.0); EOS % 1.9 % (0-4.5); HEMATOCRIT 39.2 % (32.4-45.2); HEMOGLOBIN 13.1 GM/dL (10.7-15.3); LYMPH % 24.9 % (8-40); MCH 27.4 pg (25.7-33.7); MCHC 33.4 g/dl (32.0-36.0); MEAN PLT VOLUME 6.7 fl (7.5-11.1); MONO % 4.8 % (3.8-10.2); NEUT % 68.2 % (42.8-82.8); PLATELET COUNT 426 10^3/uL (134-434); RBC 4.78 M/mm3 (3.60-5.2); RDW 13.2 % (11.6-15.6); WHITE BLOOD COUNT 9.9 K/mm3 (4.0-10.0)
[2022-03-12 09:11] LABS: CALCIUM 8.5 mg/dL (8.5-10.1)
[2022-03-12 09:12] LABS: ALBUMIN 2.7 g/dl (3.4-5.0); BLOOD UREA NITROGEN 5.6 mg/dL (7-18)
[2022-03-12 09:15] LABS: CREATININE 0.8 mg/dL (0.55-1.3); PHOSPHOROUS 3.3 mg/dL (2.5-4.9)
[2022-03-12 09:17] LABS: BILIRUBIN,TOTAL 0.2 mg/dL (0.2-1); TOT PROT 6.4 g/dl (6.4-8.2)
[2022-03-12] MEDS ORDERED: DEXTROSE 5%-WATER - 50 ML IVPB ONE (10:33)
[2022-03-12] MEDS ORDERED: cefTRIAXone SODIUM 1 GM VIAL ONE (10:33)
[2022-03-12] MEDS: CEFTRIAXONE 1 GM in DEXTROSE 5%-WATER - 50 ML IVPB SCH (10:38)
[2022-03-12 14:00] VITALS: BMI 49.5
[2022-03-13] MEDS ORDERED: cefTRIAXone SODIUM 1 GM VIAL ONE (08:59)
[2022-03-13] MEDS ORDERED: DEXTROSE 5%-WATER - 50 ML IVPB ONE (09:00)
[2022-03-13] MEDS: CEFTRIAXONE 1 GM in DEXTROSE 5%-WATER - 50 ML IVPB SCH (09:17)
[2022-03-13 12:24] LABS: HEMATOCRIT 38.1 % (32.4-45.2); HEMOGLOBIN 13.2 GM/dL (10.7-15.3); MCH 28.2 pg (25.7-33.7); MCHC 34.7 g/dl (32.0-36.0); MEAN CELL VOLUME 81.2 fl (80-96); MEAN PLT VOLUME 6.5 fl (7.5-11.1); PLATELET COUNT 407 10^3/uL (134-434); RDW 12.9 % (11.6-15.6); WHITE BLOOD COUNT 10.4 K/mm3 (4.0-10.0)
[2022-03-13 12:48] LABS: CALCIUM 8.8 mg/dL (8.5-10.1)
[2022-03-13 12:49] LABS: BLOOD UREA NITROGEN 6.7 mg/dL (7-18)
[2022-03-13 12:52] LABS: CREATININE 0.8 mg/dL (0.55-1.3)
[2022-03-13 14:45] VITALS: BP 149/73; PULSE 59; TEMP 98.8
== END 2022-03-13 17:13 | disposition home or self-care (01) ==
LOC: JER 01:12 → JERBED 03:50 → J5S 10:15
PROVIDERS: ADMIT Hospitalist; ATTEND Internal Medicine
PROC: 3E03329 Introduction of Other Anti-infective into Peripheral Vein, Percutaneous Approach (ICD-10-PCS; principal; 2022-03-10)
PROC: 3E023GC Introduction of Other Therapeutic Substance into Muscle, Percutaneous Approach (ICD-10-PCS; 2022-03-10)
PROC: 3E0337Z Introduction of Electrolytic and Water Balance Substance into Peripheral Vein, Percutaneous Approach (ICD-10-PCS; 2022-03-10)
PROC: 3E033NZ Introduction of Analgesics, Hypnotics, Sedatives into Peripheral Vein, Percutaneous Approach (ICD-10-PCS; 2022-03-10)
DX: K52.9 Noninfective gastroenteritis and colitis, unspecified (principal); R63.0 Anorexia; R68.83 Chills (without fever); E66.01 Morbid (severe) obesity due to excess calories; Z68.42 Body mass index [BMI] 45.0-49.9, adult; E28.2 Polycystic ovarian syndrome; Z88.0 Allergy status to penicillin; Z29.8 Encounter for other specified prophylactic measures
CPT/HCPCS: 36415; 71046-TC-FY; 74177-TC; 80048; 80053; 81003; 83036; 83631; 83690; 83735; 84100; 84443; 84703; 85025; 85027; 85610; 85730; 86850; 86900; 86901; 87040; 87045; 87046; 87205; 87427; 93005; 93010; 93971; 99285-25; C9803-CS; G0378; Q9967; U0003; U0005

== ENCOUNTER 2022-09-22 17:37 | Emergency (ER) | payer SELFPAY ==
[2022-09-22 17:47] VITALS: BP 117/60; PULSE 89; RESP 18; TEMP 99; BMI 42.0
[2022-09-22] MEDS ORDERED: ALBUTEROL SO4 2.5/IPRATROPIUM 0.5 INH SOL 3 ML VIAL.NEB. NEB ONE ×2 (19:27→19:36)
[2022-09-22] MEDS ORDERED: IBUPROFEN 600 MG TABLET (FP) PO ONE ×2 (19:27→19:36)
[2022-09-22] MEDS ORDERED: ACETAMINOPHEN 500 MG TABLET (FP) PO ONE (19:27)
[2022-09-22] MEDS ORDERED: ACETAMINOPHEN 500 MG TABLET (FP) ONE (19:36)
[2022-09-22] MEDS ORDERED: predniSONE 20 MG TABLET (UD) PO ONE (20:44)
[2022-09-22] MEDS ORDERED: predniSONE 20 MG TABLET (UD) ONE (20:59)
== END 2022-09-22 21:07 | disposition home or self-care (01) ==
LOC: JERFT 17:37 → JER 17:37 → JERFT 21:07
PROC: 3E0F7GC Introduction of Other Therapeutic Substance into Respiratory Tract, Via Natural or Artificial Opening (ICD-10-PCS; principal; 2022-09-22)
DX: J20.9 Acute bronchitis, unspecified (principal)
CPT/HCPCS: 71046-TC-FY; 93005; 93010; 99284-25

== ENCOUNTER 2022-09-30 01:37 | Emergency (ER) | payer SELFPAY ==
[2022-09-30 01:46] VITALS: BMI 47.5
[2022-09-30] MEDS ORDERED: LACTATED RINGERS SOLUTION 1000 ML INFUS.BAG IV ONE (02:13)
[2022-09-30] MEDS ORDERED: diazePAM CARPU-JECT 10 MG/2 ML DISP.SYRIN IVPUSH ONE (02:13)
[2022-09-30] MEDS ORDERED: METOCLOPRAMIDE HCL INJECTION 10 MG/2 ML VIAL IVPUSH ONE (02:13)
[2022-09-30] MEDS ORDERED: ACETAMINOPHEN 1000 MG/100 ML BAG IVPB ONE (02:13)
[2022-09-30] MEDS ORDERED: HALOPERIDOL LACTATE 5 MG/ML IM ONE (02:24)
[2022-09-30] MEDS ORDERED: ACETAMINOPHEN INJECTION 100 ML IVPB ONE (03:01)
[2022-09-30] MEDS ORDERED: diazePAM CARPU-JECT 10 MG/2 ML DISP.SYRIN ONE (03:01)
[2022-09-30] MEDS ORDERED: METOCLOPRAMIDE HCL INJECTION 10 MG/2 ML VIAL ONE (03:39)
[2022-09-30 04:42] LABS: ALBUMIN 3.4 g/dl (3.4-5.0); BLOOD UREA NITROGEN 9.2 mg/dL (7-18); CALCIUM 8.9 mg/dL (8.5-10.1)
[2022-09-30 04:46] LABS: BASO % 0.8 % (0-2.0); EOS % 0.1 % (0-4.5); HEMATOCRIT 38.7 % (32.4-45.2); HEMOGLOBIN 12.9 GM/dL (10.7-15.3); LYMPH % 13.1 % (8-40); MCH 27.7 pg (25.7-33.7); MCHC 33.2 g/dl (32.0-36.0); MEAN CELL VOLUME 83.4 fl (80-96); MEAN PLT VOLUME 7.2 fl (7.5-11.1); MONO % 2.5 % (3.8-10.2); NEUT % 83.5 % (42.8-82.8); PLATELET COUNT 433 10^3/uL (134-434); RBC 4.64 M/mm3 (3.60-5.2); WHITE BLOOD COUNT 15.5 K/mm3 (4.0-10.0)
[2022-09-30 04:47] LABS: BILIRUBIN,TOTAL 0.4 mg/dL (0.2-1); TOT PROT 7.8 g/dl (6.4-8.2)
[2022-09-30] MEDS ORDERED: DOXYCYCLINE HYCLATE 100 MG VIAL ONE (09:25)
[2022-09-30] MEDS ORDERED: MIDAZOLAM HCL 2 MG/2 ML SINGLE DOSE VIAL ONE ×2 (10:08→10:35)
[2022-09-30] MEDS ORDERED: MIDAZOLAM HCL 2 MG/2 ML SINGLE DOSE VIAL IVPUSH ONE (10:15)
[2022-09-30] MEDS ORDERED: HYDROmorphone HCl 2 MG/ML VIAL ONE (10:38)
[2022-09-30] MEDS ORDERED: LIDOCAINE HCL 2% (20ML MULTI-DOSE VIAL) ONE (10:53)
[2022-09-30] MEDS ORDERED: HYDROmorphone HCL CARPU-JECT 2 MG/1 ML DISP.SYRIN IVPUSH ONE (12:12)
[2022-09-30 14:28] VITALS: BP 97/63; PULSE 70; RESP 15; TEMP 99
== END 2022-09-30 14:15 | disposition short-term general hospital (02) ==
LOC: JER 01:37
PROC: 3E033NZ Introduction of Analgesics, Hypnotics, Sedatives into Peripheral Vein, Percutaneous Approach (ICD-10-PCS; principal; 2022-09-30)
PROC: 3E033GC Introduction of Other Therapeutic Substance into Peripheral Vein, Percutaneous Approach (ICD-10-PCS; 2022-09-30)
PROC: 3E033GC Introduction of Other Therapeutic Substance into Peripheral Vein, Percutaneous Approach (ICD-10-PCS; 2022-09-30)
PROC: 3E033GC Introduction of Other Therapeutic Substance into Peripheral Vein, Percutaneous Approach (ICD-10-PCS; 2022-09-30)
PROC: 3E023NZ Introduction of Analgesics, Hypnotics, Sedatives into Muscle, Percutaneous Approach (ICD-10-PCS; 2022-09-30)
PROC: 3E033GC Introduction of Other Therapeutic Substance into Peripheral Vein, Percutaneous Approach (ICD-10-PCS; 2022-09-30)
PROC: 3E033GC Introduction of Other Therapeutic Substance into Peripheral Vein, Percutaneous Approach (ICD-10-PCS; 2022-09-30)
DX: I72.9 Aneurysm of unspecified site (principal); G44.89 Other headache syndrome
CPT/HCPCS: 36415; 70450-TC; 70496-TC; 70498-TC; 71045-TC-FY; 80053; 84703; 85025; 93005; 93010; 99285-25; C9803-CS; U0003; U0005

== ENCOUNTER 2023-12-02 16:58 | Emergency (ER) | payer SELFPAY ==
[2023-12-02 17:07] VITALS: BP 120/60; PULSE 81; RESP 20; TEMP 99.7; BMI 40.2
[2023-12-02] MEDS ORDERED: ACETAMINOPHEN 500 MG TABLET (FP) PO ONE (19:20)
[2023-12-02] MEDS ORDERED: ACETAMINOPHEN 500 MG TABLET (FP) ONE (19:26)
== END 2023-12-02 20:45 | disposition home or self-care (01) ==
LOC: JERFT 16:58
DX: R07.0 Pain in throat (principal); B34.9 Viral infection, unspecified; R05.9 Cough, unspecified; M79.10 Myalgia, unspecified site; R53.83 Other fatigue; R53.1 Weakness; R51.9 Headache, unspecified; Z20.822 Contact with and (suspected) exposure to COVID-19
CPT/HCPCS: 0241U-QW; 99283-25

== ENCOUNTER 2024-05-29 10:00 | Emergency (ER) | payer SELFPAY ==
[2024-05-29 10:12] VITALS: BP 123/70; PULSE 63; RESP 17; TEMP 97.3; BMI 48.4
[2024-05-29] MEDS ORDERED: IBUPROFEN 400 MG TABLET (FP) PO ONE (10:53)
[2024-05-29] MEDS: IBUPROFEN 400 MG TABLET (FP) PO ONE (10:56)
== END 2024-05-29 11:17 | disposition home or self-care (01) ==
LOC: JERFT 10:00
DX: M72.2 Plantar fascial fibromatosis (principal)
CPT/HCPCS: 73630-TC-LT; 99283-25

== ENCOUNTER 2024-08-25 09:19 | Emergency (ER) | payer SELFPAY ==
[2024-08-25 09:29] VITALS: BP 96/62; PULSE 70; RESP 20; TEMP 97.8; BMI 42.0
[2024-08-25] MEDS ORDERED: IBUPROFEN 600 MG TABLET (FP) PO ONE (10:37)
[2024-08-25] MEDS: IBUPROFEN 600 MG TABLET (FP) PO ONE (10:40)
== END 2024-08-25 10:59 | disposition home or self-care (01) ==
LOC: JERFT 09:19
DX: M79.672 Pain in left foot (principal); M72.2 Plantar fascial fibromatosis; M77.32 Calcaneal spur, left foot
CPT/HCPCS: 99283-25

== ENCOUNTER 2024-09-21 20:39 | Emergency (ER) | payer SELFPAY ==
[2024-09-21 20:50] VITALS: BP 108/71; PULSE 62; RESP 20; TEMP 98; BMI 42.0
[2024-09-21] MEDS ORDERED: IBUPROFEN 600 MG TABLET (FP) PO ONE (22:04)
[2024-09-21] MEDS ORDERED: ACETAMINOPHEN 500 MG TABLET (FP) ONE (22:04)
[2024-09-21] MEDS: ACETAMINOPHEN 500 MG TABLET (FP) PO ONE (22:11)
[2024-09-21] MEDS: IBUPROFEN 600 MG TABLET (FP) PO ONE (22:11)
== END 2024-09-21 22:36 | disposition home or self-care (01) ==
LOC: JERFT 20:39
DX: M77.32 Calcaneal spur, left foot (principal)
CPT/HCPCS: 73610-TC-LT-FY; 99283-25

== ENCOUNTER 2025-07-13 20:10 | Emergency (ER) | payer SELFPAY ==
[2025-07-13 20:19] VITALS: BP 111/55; PULSE 68; RESP 20; TEMP 98.4; BMI 43.9
[2025-07-13 22:20] LABS: HCV DIAGNOSTIC IN-HOUSE W/RFLX NON-REACTIVE (NONREACTIVE)
[2025-07-14 06:40] LABS: HIV INTERPRETATION NEGATIVE (NEGATIVE)
== END 2025-07-13 21:32 | disposition home or self-care (01) ==
LOC: JERFT 20:10
DX: L50.9 Urticaria, unspecified (principal); Z11.3 Encounter for screening for infections with a predominantly sexual mode of transmission
CPT/HCPCS: 36415; 86780; 86803; 87389; 87491; 87591; 99283-25